=== PATIENT | male | born 1960 | race Caucasian/White ===

== ENCOUNTER 2017-12-17 16:08 | Inpatient (IN) ==
[2017-12-17] MEDS ORDERED: Bumetanide 1 MG/4 ML VIAL IVP ONE (16:34)
--- NOTE | 2017-12-17 16:36 | Emergency Department Note ---
Disposition Clinical Impression: Acute exacerbation of CHF (congestive heart failure), Anemia, Congestive heart failure Disposition: Admitted As Inpatient Condition: Fair Referrals: Damon Amos, [employer] [Primary Care Provider] - Forms: ED Satisfaction Letter SOB HPI - General Chief Complaint: ED Shortness of Breath/Dyspnea Stated Complaint: swelling SOB Time Seen by Provider: 12/17/17 16:11 Source: patient Mode of arrival: ambulatory Limitations: no limitations Nursing Notes Reviewed: Yes Vital Signs Reviewed: Yes - History of Present Illness 57-year-old male who 2 months ago had stents placed and since then has had increasing swelling and edema he's been hospitalized once during this. Time and now presents back to the emergency room with increasing swelling and edema from that time he denies blurred vision double vision loss vision denies a diarrhea melena hematochezia hematemesis patient states that his get 2-3+ edema is unable family rales house second a dyspnea with elevated cough but no congestion he denies diarrhea melena hematochezia hematemesis he states his legs are markedly edematous Pt Subjective Complaint: shortness of breath Onset (ago): month(s) (2) Context: other (History's similar) Severity: severe Consistency/Duration: gradually worsening Improves with: nothing Worsens with: exertion Known history of: congestive heart failure, diabetes Associated symptoms: Reports: wheezing, orthopnea, abdominal pain. Denies: chest pain, pain with inspiration, fever, cough, sputum production, lower extremity pain, polyuria, polydipsia, parasthesias, palpitations, hemoptysis, diaphoresis, nausea/vomiting, syncope, rash, sense of impending doom Treatment prior to arrival: diuretics Cough present: Yes Cough Description: Involuntary, Rattling Cough Frequency: Intermittent Sputum production: No - Related Data Home Medications Medication Instructions Recorded Confirmed metFORMIN [Glucophage] 1,000 mg PO BIDWM 06/05/16 12/17/17 Glimepiride [Amaryl] 2 mg PO 0800 08/29/17 12/17/17 Insulin Glargine,Hum.rec.anlog 20 unit SQ HS 09/08/17 12/17/17 [Basaglar Kwikpen U-100] Lisinopril [Zestril] 5 mg PO DAILY 09/08/17 12/17/17 Atorvastatin [Lipitor] 20 mg PO HS 09/22/17 12/17/17 Previous Rx's Medication Instructions Recorded Aspirin Enteric Coated [Aspirin EC] 81 mg PO DAILY 30 Days #30 09/15/17 tablet. Ticagrelor [Brilinta] 90 mg PO BID 30 Days #60 tablet 09/15/17 Ascorbic Acid [Vitamin C] 500 mg PO 0630 #30 tablet 10/28/17 Bumetanide [Bumex] 1 mg PO BID #60 tablet 10/28/17 Carvedilol 12.5 mg PO BID #60 tab 10/28/17 Digoxin [Lanoxin] 0.125 mg PO DAILY #30 tablet 10/28/17 Ferrous Sulfate 325 mg PO 0630 #30 tablet 10/28/17 Isosorbide MONOnitrate (24 HR) 30 mg PO DAILY #30 tab.er.24h 10/28/17 [Imdur] Potassium Chloride 10 meq PO DAILY #30 tab.er.prt 10/28/17 Allergies Allergy/AdvReac Type Severity Reaction Status Date / Time No Known Allergies Allergy Verified 12/17/17 16:09 All systems ED: reviewed and negative except as stated. Review of Systems: As Per HPI Constitutional: Reports: weakness. Denies: fever, chills Eyes: Denies: eye pain, eye discharge ENT ED: Denies: ear pain, throat pain, congestion Cardiovascular: Reports: dyspnea on exertion, orthopnea, edema. Denies: chest pain, palpitations Respiratory: Denies: cough, dyspnea, wheezes Gastrointestinal: Reports: abdominal pain. 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 Denies: back pain , neck pain Integumentary: Denies: rash, abrasion, other Neurological: Denies: headache, weakness, numbness Psychiatric: Denies: anxiety, depression Endocrine: Denies: fatigue, heat or cold intolerance Hematological/Lymphatic: Denies: easy bleeding Allergic/Immunologic: Denies: facial swelling Past Medical History - Past Medical History Medical history: Reports: CHF, coronary artery disease, diabetes, hypertension, myocardial infarction Surgical history: Reports: angioplasty/stent Psychiatric history: Reports: other - Social History Smoking Status: Never smoker Smokeless Tobacco Status: No Alcohol use: Reports: none Drug use: Reports: marijuana Physical Exam - General Limitations: no limitations General appearance: alert, in no apparent distress, obese - Head Head exam: atraumatic, normocephalic, normal inspection - Eye Eye exam: Present: normal appearance, PERRL, EOMI - ENT ENT exam: normal exam, normal oropharynx, mucous membranes moist, TM's normal bilaterally, normal external ear exam - Neck Neck exam: Present: normal inspection, full ROM, trachea midline - Chest Chest inspection: Present: symmetric chest wall rise, other (Edema to the nipple level) - Respiratory Respiratory exam: Present: normal lung sounds bilaterally, prolonged expiratory phase - Cardiovascular Cardiovascular exam: Present: regular rate, normal rhythm, normal heart sounds, other (Distant heart tones) - Abdominal Exam Abdominal exam: Present: soft, Non-Tender, other (L sounds are diminished pitting edema noted of the abdominal region) - Extremities Exam Extremities exam: Present: normal inspection, full ROM, normal capillary refill , pedal edema. Absent: tenderness - Expanded Lower Extremity Exam Gait: observed and normal - Back Exam Back exam: Present: normal inspection, full ROM. Absent: muscle spasm - Neurological Exam Neurological exam: Present: alert, oriented X3, CN II-XII intact - Psychiatric Psychiatric exam: Present: normal affect, normal mood - Skin Skin exam: Present: warm, dry, intact, normal color Course Course Narrative: Patient seen and examined patient was noted to have 3+ edema over the entire lower portion of his body all the way up to the level of the nipples patient had diminished breath sounds soft supple but fluid shift in the abdomen with the marked edema patient was actually seen by Dr. Cleveland in the emergency room who agreed for admission to his services after evaluation patient transferred to [facility] for further diuresis had already received 2 mg of Bumex here in the ER Vital Signs Temperature 99.2 F 12/17/17 16:11 Pulse Rate 87 12/17/17 16:11 Respiratory Rate 20 12/17/17 16:11 Blood Pressure 156/102 12/17/17 16:11 O2 Sat by Pulse Oximetry 98 12/17/17 16:11 Temperature 98.2 F 12/17/17 18:52 Pulse Rate 62 12/17/17 18:52 Respiratory Rate 20 12/17/17 18:52 Blood Pressure 151/88 12/17/17 18:52 O2 Sat by Pulse Oximetry 98 12/17/17 18:52 Oxygen Delivery Oxygen Delivery Nasal Cannula Shortness of Breath/Dyspnea - Differential Diagnosis Likely: congestive heart failure - Medical Records Medical records reviewed: Yes I reviewed the patient's medical records. - Lab Data Lab results reviewed: Yes I reviewed the patient's lab results. Result diagrams: 12/17/17 16:27 12/17/17 16:27 Lab Results 12/17/17 12/17/17 12/17/17 Range/Units 16:27 16:27 16:27 WBC 8.1 (4.3-11.1) K/mcL RBC 3.57 L (4.19-5.50) M/mcL Hgb 9.9 L (12.9-16.9) g/dL Hct 32.1 L (37.5-50.1) % MCV 89.9 (83.0-100.0) fL MCH 27.7 L (28.0-33.3) pg MCHC 30.8 L (31.6-35.5) g/dL RDW 15.1 H (11.5-14.5) % Plt Count 284 (140-400) K/mcL MPV 10.1 (9.4-12.4) fL Immature Gran % 0.5 (0-4) % Seg Neutrophils % 69.1 % Lymphocytes % 18.2 % Monocytes % 9.0 % Eosinophils % 2.5 % Basophils % 0.7 % Neutrophils # 5.6 (1.6-8.9) K/mcL Lymphocytes # 1.5 (0.6-4.6) K/mcL Monocytes # 0.7 (0.0-1.3) K/mcL Eosinophils # 0.2 (0.0-0.6) K/mcL Basophils # 0.1 (0.0-0.2) K/mcL PT 16.9 H (9.4-12.1) Seconds INR 1.5 APTT 35.1 (26.0-36.0) Seconds Sodium 140 (136-145) mEq/L Potassium 4.7 (3.5-5.1) mEq/L Chloride 95 L (98-107) mEq/L Carbon Dioxide 37 H (23-29) mEq/L BUN 29 H (6-20) mg/dL Creatinine 0.92 (0.70-1.30) mg/dL Est GFR ( Amer) > 60 (> 60) Est GFR (Non-Af Amer) > 60 (> 60) BUN/Creatinine Ratio 32 H (6-26) Glucose 91 (70-105) mg/dL Calculated Osmolality 295 (280-300) Calcium 9.2 (8.6-10.3) mg/dL Magnesium 1.5 L (1.6-2.6) mg/dL Total Bilirubin 0.6 (0.3-1.0) mg/dL AST 23 (13-39) Units/L ALT 14 (7-52) Units/L Alkaline Phosphatase 323 H (34-104) Units/L Troponin I 0.04 H* (< 0.04) ng/mL B-Natriuretic Peptide (Less than 100) pg/mL Serum Total Protein 7.3 (6.4-8.9) g/dL Albumin 3.4 L (3.5-5.7) g/dL Globulin 3.9 H (2.4-3.5) g/dL Albumin/Globulin Ratio 0.9 L (1.1-2.2) TSH 4.950 (0.340-5.600) mcIU/mL 12/17/17 Range/Units 16:27 WBC (4.3-11.1) K/mcL RBC (4.19-5.50) M/mcL Hgb (12.9-16.9) g/dL Hct (37.5-50.1) % MCV (83.0-100.0) fL MCH (28.0-33.3) pg MCHC (31.6-35.5) g/dL RDW (11.5-14.5) % Plt Count (140-400) K/mcL MPV (9.4-12.4) fL Immature Gran % (0-4) % Seg Neutrophils % % Lymphocytes % % Monocytes % % Eosinophils % % Basophils % % Neutrophils # (1.6-8.9) K/mcL Lymphocytes # (0.6-4.6) K/mcL Monocytes # (0.0-1.3) K/mcL Eosinophils # (0.0-0.6) K/mcL Basophils # (0.0-0.2) K/mcL PT (9.4-12.1) Seconds INR APTT (26.0-36.0) Seconds Sodium (136-145) mEq/L Potassium (3.5-5.1) mEq/L Chloride (98-107) mEq/L Carbon Dioxide (23-29) mEq/L BUN (6-20) mg/dL Creatinine (0.70-1.30) mg/dL Est GFR ( Amer) (> 60) Est GFR (Non-Af Amer) (> 60) BUN/Creatinine Ratio (6-26) Glucose (70-105) mg/dL Calculated Osmolality (280-300) Calcium (8.6-10.3) mg/dL Magnesium (1.6-2.6) mg/dL Total Bilirubin (0.3-1.0) mg/dL AST (13-39) Units/L ALT (7-52) Units/L Alkaline Phosphatase (34-104) Units/L Troponin I (< 0.04) ng/mL B-Natriuretic Peptide 1465 H (Less than 100) pg/mL Serum Total Protein (6.4-8.9) g/dL Albumin (3.5-5.7) g/dL Globulin (2.4-3.5) g/dL Albumin/Globulin Ratio (1.1-2.2) TSH (0.340-5.600) mcIU/mL - Radiology Data Radiology results reviewed: Yes I reviewed the patient's radiology results. - EKG Data EKG attestation: Yes I reviewed and interpreted this EKG. EKG results narrative: Sinus rhythm with arrhythmia 93 ME 147 Kurer 70 QT 357 axis -21 Critical Care Time Total Critical Care Time: 40 Attestation: Critical care performed: 40 minutes hypoxia that a clinically significant life- threatening deterioration is patient's condition excluding separately reportable procedures Time is exclusive of separately billable procedures. Time includes: direct patient care, patient reassessment, coordination of patient care, interpretation of data (laboratory data, radiology data, and respiratory data), review of patient's medical records, medical consultation and documentation of patient care. Procedures included in critical care time: Procedures excluded from critical care time:
[2017-12-17 16:44] LABS: Basophils # 0.1 K/mcL (0.0-0.2); Basophils % 0.7 %; Eosinophils # 0.2 K/mcL (0.0-0.6); Eosinophils % 2.5 %; Hematocrit 32.1 % (37.5-50.1); Hemoglobin 9.9 g/dL (12.9-16.9); Immature Granulocytes % 0.5 % (0-4); Lymphocytes # 1.5 K/mcL (0.6-4.6); Lymphocytes % 18.2 %; Mean Corpuscular HGB Conc 30.8 g/dL (31.6-35.5); Mean Corpuscular Hemoglobin 27.7 pg (28.0-33.3); Mean Corpuscular Volume 89.9 fL (83.0-100.0); Mean Platelet Volume 10.1 fL (9.4-12.4); Monocytes # 0.7 K/mcL (0.0-1.3); Neutrophils # 5.6 K/mcL (1.6-8.9); Platelet Count 284 K/mcL (140-400); Red Blood Count 3.57 M/mcL (4.19-5.50); Red Cell Distribution Width 15.1 % (11.5-14.5); Segmented Neutrophils % 69.1 %
[2017-12-17 16:46] LABS: INR 1.5; Prothrombin Time 16.9 Seconds (9.4-12.1)
[2017-12-17 16:49] LABS: Activated Partial Thrombo Time 35.1 Seconds (26.0-36.0)
[2017-12-17 16:56] LABS: Alanine Aminotransferase 14 Units/L (7-52); Albumin 3.4 g/dL (3.5-5.7); Albumin/Globulin Ratio 0.9 (1.1-2.2); Alkaline Phosphatase 323 Units/L (34-104); Aspartate Amino Transferase 23 Units/L (13-39); BUN/Creatinine Ratio 32 (6-26); Bilirubin,Total 0.6 mg/dL (0.3-1.0); Blood Urea Nitrogen 29 mg/dL (6-20); Calcium 9.2 mg/dL (8.6-10.3); Carbon Dioxide 37 mEq/L (23-29); Chloride 95 mEq/L (98-107); Globulin 3.9 g/dL (2.4-3.5); Glucose 91 mg/dL (70-105); Magnesium 1.5 mg/dL (1.6-2.6); Osmolality,Calculated 295 (280-300); Potassium 4.7 mEq/L (3.5-5.1); Sodium 140 mEq/L (136-145); Total Protein 7.3 g/dL (6.4-8.9); eGFR For Non-African Americans > 60 (> 60)
[2017-12-17 17:11] LABS: Troponin I 0.04 ng/mL (< 0.04)
[2017-12-17] MEDS ORDERED: Naloxone 0.4 MG/ML INJ IVP PRN (19:57)
[2017-12-17] MEDS ORDERED: Insulin DETEMIR 100 UNIT/ML per UNIT SQ ONE (21:00)
[2017-12-17] MEDS: Bumetanide 1 MG TABLET PO SCH (21:38)
[2017-12-17] MEDS: *HR* Ticagrelor 90 MG TABLET PO SCH (21:38)
[2017-12-18 06:17] LABS: Basophils # 0.1 K/mcL (0.0-0.2); Basophils % 0.7 %; Eosinophils # 0.1 K/mcL (0.0-0.6); Eosinophils % 1.5 %; Hematocrit 31.1 % (37.5-50.1); Hemoglobin 9.5 g/dL (12.9-16.9); Immature Granulocytes % 0.3 % (0-4); Lymphocytes # 1.5 K/mcL (0.6-4.6); Mean Corpuscular HGB Conc 30.5 g/dL (31.6-35.5); Mean Corpuscular Hemoglobin 27.3 pg (28.0-33.3); Mean Corpuscular Volume 89.4 fL (83.0-100.0); Mean Platelet Volume 10.3 fL (9.4-12.4); Monocytes % 10.9 %; Neutrophils # 6.1 K/mcL (1.6-8.9); Platelet Count 278 K/mcL (140-400); Red Blood Count 3.48 M/mcL (4.19-5.50); Red Cell Distribution Width 15.2 % (11.5-14.5); Segmented Neutrophils % 69.6 %
[2017-12-18 06:28] LABS: INR 1.6; Prothrombin Time 17.8 Seconds (9.4-12.1)
[2017-12-18 06:31] LABS: Activated Partial Thrombo Time 36.6 Seconds (26.0-36.0)
[2017-12-18] MEDS: Ascorbic Acid 500 MG TABLET PO SCH (06:44)
[2017-12-18 06:58] LABS: BUN/Creatinine Ratio 37 (6-26); Blood Urea Nitrogen 30 mg/dL (6-20); Calcium 9.2 mg/dL (8.6-10.3); Carbon Dioxide 36 mEq/L (23-29); Chloride 97 mEq/L (98-107); Glucose 84 mg/dL (70-105); Osmolality,Calculated 295 (280-300); Potassium 3.9 mEq/L (3.5-5.1); Sodium 140 mEq/L (136-145); eGFR For Non-African Americans > 60 (> 60)
[2017-12-18] MEDS ORDERED: Bumetanide 1 MG/4 ML VIAL IVP SCH ×2 (08:00→15:47)
[2017-12-18] MEDS ORDERED: Isosorbide MONOnitrate (24 HR) 30 MG TAB.ER.24H PO SCH (09:00)
[2017-12-18] MEDS: *HR* Ticagrelor 90 MG TABLET PO SCH ×2 (09:04→20:25)
[2017-12-18] MEDS: *HR* Glimepiride 2 MG TABLET PO SCH (09:05)
[2017-12-18] MEDS: *HR* Metformin 500 MG TABLET PO SCH ×2 (09:05→16:41)
[2017-12-18] MEDS: Aspirin Enteric Coated 81 MG Tablet PO SCH (09:05)
[2017-12-18] MEDS: *HR* Digoxin 0.125 MG TABLET PO SCH (09:05)
[2017-12-18] MEDS: Bumetanide 1 MG TABLET PO SCH (09:07)
--- NOTE | 2017-12-18 15:33 | Internal Med History&Physical ---
Date of Encounter: 12/18/17 Time of Encounter: 15:00 Assessment and Plan (1) Acute exacerbation of CHF (congestive heart failure) Current visit: Yes Status: Acute Weight and BN peptide have improved since discharge October 2017. He is still significantly symptomatic however so will increase diuretic, Coreg, ACEI, and isosorbide dose. Qualifiers: Heart failure type: systolic Qualified Code(s): I50.23 - Acute on chronic systolic (congestive) heart failure (2) HTN (hypertension) Current visit: No Status: Chronic Increase lisinopril and Coreg. Qualifiers: Hypertension type: essential hypertension Qualified Code(s): I10 - Essential (primary) hypertension (3) Diabetes Current visit: No Status: Chronic Hemoglobin A1c was 10.9% on 10/26/2017. Continue Levemir and Glucophage. Qualifiers: Diabetes mellitus type: type 2 Diabetes mellitus residential insulin use: unspecified [employer] helper insulin use status Diabetes mellitus complication status : with unspecified complications Qualified Code(s): E11.8 - Type 2 diabetes mellitus with unspecified complications (4) CAD (coronary artery disease) Current visit: No Status: Acute Increase Coreg and isosorbide. Continue aspirin.. Qualifiers: Coronary Disease-Associated Artery/Lesion type: [place] artery [place] vs. transplanted heart: [place] heart Associated angina: without angina Qualified Code(s): I25.10 - Atherosclerotic heart disease of [place] coronary artery without angina pectoris (5) Anemia Current visit: Yes Status: Chronic Anemia testing October 2017 showed iron 28, transferrin saturation 10%, transferrin 196, ferritin 121, B12 351, and folate 8.8. Continue ferrous sulfate with vitamin C. Qualifiers: Anemia type: iron deficiency Qualified Code(s): D50.8 - Other iron deficiency anemias (6) Pulmonary hypertension Current visit: No Status: Acute As above. Internal Medicine - H&P: HPI Chief complaint: Dyspnea, edema Admitted From: Emergency Dept Plans for Post Hospital Care: Home History of present illness: Mr. Trujillo is a 57 year old male who came to emergency room stating he had increasing dyspnea over the past month. He reports he had fallen approximately 6 times since discharge from [facility] 10/28/2017 despite using a cane to assist in ambulation. He was evaluated in emergency room and found to have anasarca likely due to diastolic heart failure. He was admitted to [facility] floor for ongoing care needs. His cardiovascular history is significant for hypertension. He has known [facility] and states he had MD in July 2017. Heart catheter done in August 2017 resulted in PCI with stents in the mid LAD, diagonal, and right PDA. LVEF at cath was estimated 20-25%. Echocardiogram 09/09/2017 showed LVEF 35% with diffuse LV hypokinesis. There was indeterminate diastolic function. There was mild aortic regurgitation, mild mitral regurgitation, moderate tricuspid regurgitation, and severe pulmonary hypertension with estimated RVSP of 69 mmHg. A small pericardial effusion was present and a large pleural effusion seen at that time. He denies DVT or pulmonary embolus. He denies medication noncompliance other than missing a rare dose of his pills. Past Med Surg Social Fam HX - Past Medical History Medical history: CHF, coronary artery disease, diabetes, hypertension, myocardial infarction Psychiatric history: other - Past Surgical History Surgical History: angioplasty/stent - Social History Smoking Status: Never smoker Smokeless Tobacco Status: No Alcohol use: none Drug use: marijuana - Family History Father Family Member Ethnicity: Non- Living Status: Hx Family Cardiac Disorders: Yes (MD @ 31) Mother Family Member Ethnicity: Non- Living Status: Hx Family Cancer: Yes (Lung) Brother Family Member Ethnicity: Non- Living Status: Still Living Sister Family Member Ethnicity: Non- Living Status: Still Living Internal Medicine - H&P: Meds metFORMIN [Glucophage] 1,000 mg PO BIDWM 06/05/16 [History] Glimepiride [Amaryl] 2 mg PO 0800 08/29/17 [History] Insulin Glargine,Hum.rec.anlog [Basaglar Kwikpen U-100] 20 unit SQ HS 09/08/17 [ History] Lisinopril [Zestril] 5 mg PO DAILY 09/08/17 [History] Aspirin Enteric Coated [Aspirin EC] 81 mg PO DAILY 30 Days #30 tablet. [Rx] Ticagrelor [Brilinta] 90 mg PO BID 30 Days #60 tablet 09/15/17 [Rx] Atorvastatin [Lipitor] 20 mg PO HS 09/22/17 [History] Ascorbic Acid [Vitamin C] 500 mg PO 0630 #30 tablet 10/28/17 [Rx] Bumetanide [Bumex] 1 mg PO BID #60 tablet 10/28/17 [Rx] Carvedilol 12.5 mg PO BID #60 tab 10/28/17 [Rx] Digoxin [Lanoxin] 0.125 mg PO DAILY #30 tablet 10/28/17 [Rx] Ferrous Sulfate 325 mg PO 0630 #30 tablet 10/28/17 [Rx] Isosorbide MONOnitrate (24 HR) [Imdur] 30 mg PO DAILY #30 tab.er.24h 10/28/17 [ Rx] Potassium Chloride 10 meq PO DAILY #30 tab.er.prt 10/28/17 [Rx] 3 Allergy/AdvReac Type Severity Reaction Status Date / Time No Known Allergies Allergy Verified 12/17/17 16:09 All Systems PM: A 10-system review of systems was performed and is negative for pertinent findings except as documented above in the HPI. Review of systems: Review of systems from his October 2017 [facility] hospitalization were reviewed and revised as below. Gen.: His weight has increased from 70.3 kg on 09/14/2017 to 98.83 kg on admission October 2017 but decreased to 94.2 kg now Cardiovascular: As per history of present illness Respiratory: He reports being a lifelong nonsmoker and denies chronic lung disease. GI: Denies disorders of his liver gallbladder or exocrine pancreas : He denies hematuria dysuria or kidney stones Neurologic: He reports diabetic peripheral neuropathy. He denies large distribution strokes or seizures. Endocrine: Diagnosed with DM 2 approximately 1991. He has hyperlipidemia but denies thyroid disease Hematology/oncology: He denies blood disorders cancers or anemia Psychiatric: He has depression but denies anxiety or other mental health issues [place] skeletal: He has DJD but denies gout or other bone joint or muscle disorders. - Constitutional Vitals: Temp Pulse Resp BP Pulse Ox 98.8 F 98 17 142/83 93 12/18/17 11:59 12/18/17 11:59 12/18/17 11:59 12/18/17 11:59 12/18/17 11:59 Exam: Gen.: He is a well-developed well-nourished male sitting in a chair at bedside who appears slightly dyspneic. HEENT: Head is atraumatic and normocephalic. Eyes: EOMI. There is no scleral icterus. Mouth: Mucosa is moist. Neck:supple and nontender. Heart: Regular without murmurs gallops or ectopics Lungs: No wheezes or crackles are heard. He has diminished breaths as diffusely. Abdomen: Exam is limited because he is in the seated position. He has firmness with pitting edema of his abdominal torres. No guarding is noted. Extremities: He has 2-3+ edema of the dorsum of the feet and legs. Dorsalis pedis and posttibial pulses are not palpable. He has significant edema of the dorsum of the hands. Neurologic: Mental status: He is talkative and a good historian. Cranial nerves : Smile is symmetric. Forehead wrinkles bilaterally. Tongue protrudes midline. EOMI. Motor: There is no pronator drift. Cerebellar: Finger to nose is intact bilaterally. Skin: Warm and dry Internal Med - H&P Results - Labs CBC & Chem 7: 12/18/17 06:05 12/18/17 06:05 Labs: Short CBC 12/18/17 Range/Units 06:05 WBC 8.8 (4.3-11.1) K/mcL Hgb 9.5 L (12.9-16.9) g/dL Hct 31.1 L (37.5-50.1) % Plt Count 278 (140-400) K/mcL Neutrophils # 6.1 (1.6-8.9) K/mcL BMP 12/18/17 06:05 Sodium 140 Potassium 3.9 Chloride 97 L Carbon Dioxide 36 H BUN 30 H Creatinine 0.81 Glucose 84 Calcium 9.2 Cardiac Enzymes 12/17/17 12/18/17 Range/Units 23:01 06:05 Troponin I 0.03 0.04 H* (< 0.04) ng/mL
[2017-12-18] MEDS: Isosorbide MONOnitrate (24 HR) 60 MG TAB.ER.24H PO SCH (16:40)
[2017-12-18] MEDS: Bumetanide 1 MG/4 ML VIAL IVP SCH (16:41)
[2017-12-18] MEDS: Magnesium Oxide 400 MG TABLET PO SCH (20:24)
[2017-12-18] MEDS: Insulin DETEMIR 100 UNIT/ML X5UNITS SQ SCH (20:25)
[2017-12-19 06:24] LABS: Basophils % 0.4 %; Eosinophils # 0.2 K/mcL (0.0-0.6); Eosinophils % 3.2 %; Hematocrit 26.3 % (37.5-50.1); Hemoglobin 8.1 g/dL (12.9-16.9); Immature Granulocytes % 0.3 % (0-4); Lymphocytes # 0.9 K/mcL (0.6-4.6); Lymphocytes % 13.6 %; Mean Corpuscular HGB Conc 30.8 g/dL (31.6-35.5); Mean Corpuscular Hemoglobin 27.6 pg (28.0-33.3); Mean Corpuscular Volume 89.8 fL (83.0-100.0); Mean Platelet Volume 10.1 fL (9.4-12.4); Monocytes # 0.6 K/mcL (0.0-1.3); Monocytes % 9.1 %; Neutrophils # 5.1 K/mcL (1.6-8.9); Platelet Count 232 K/mcL (140-400); Red Blood Count 2.93 M/mcL (4.19-5.50); Red Cell Distribution Width 15.3 % (11.5-14.5); Segmented Neutrophils % 73.4 %
[2017-12-19] MEDS: Ascorbic Acid 500 MG TABLET PO SCH (06:32)
[2017-12-19 06:55] LABS: BUN/Creatinine Ratio 34 (6-26); Blood Urea Nitrogen 28 mg/dL (6-20); Calcium 8.6 mg/dL (8.6-10.3); Carbon Dioxide 43 mEq/L (23-29); Chloride 95 mEq/L (98-107); Glucose 57 mg/dL (70-105); Osmolality,Calculated 297 (280-300); Potassium 3.6 mEq/L (3.5-5.1); Sodium 142 mEq/L (136-145); eGFR For Non-African Americans > 60 (> 60)
[2017-12-19] MEDS: *HR* Digoxin 0.125 MG TABLET PO SCH (08:47)
[2017-12-19] MEDS: Aspirin Enteric Coated 81 MG Tablet PO SCH (08:48)
[2017-12-19] MEDS: *HR* Ticagrelor 90 MG TABLET PO SCH ×2 (08:48→21:02)
[2017-12-19] MEDS: Isosorbide MONOnitrate (24 HR) 60 MG TAB.ER.24H PO SCH (08:48)
[2017-12-19] MEDS: Magnesium Oxide 400 MG TABLET PO SCH ×2 (08:48→21:01)
[2017-12-19] MEDS: *HR* Glimepiride 2 MG TABLET PO SCH (08:48)
[2017-12-19] MEDS: *HR* Metformin 500 MG TABLET PO SCH ×2 (08:48→16:35)
[2017-12-19] MEDS: Lisinopril 20 MG TABLET PO SCH (08:49)
[2017-12-19] MEDS: Bumetanide 1 MG/4 ML VIAL IVP SCH ×2 (08:49→16:35)
--- NOTE | 2017-12-19 17:44 | Internal Med Progress Note ---
Date of Encounter: 12/19/17 Time of Encounter: 17:35 - Assessment and plan (1) Acute exacerbation of CHF (congestive heart failure) Current Visit: Yes Status: Acute Assessment and plan: December 19. Continue IV Bumex with Coreg, Lanoxin, ACEI, and Imdur Qualifiers: Heart failure type: systolic Qualified Code(s): I50.23 - Acute on chronic systolic (congestive) heart failure (2) HTN (hypertension) Current Visit: No Status: Chronic Assessment and plan: December 19. Continue lisinopril and Coreg Qualifiers: Hypertension type: essential hypertension Qualified Code(s): I10 - Essential (primary) hypertension (3) Diabetes Current Visit: No Status: Chronic Assessment and plan: December 19. Hemoglobin A1c was 10.9% on 10/26/2017. Continue Levemir and Glucophage. Qualifiers: Diabetes mellitus type: type 2 Diabetes mellitus [facility] insulin use: unspecified [facility] insulin use status Diabetes mellitus complication status : with unspecified complications Qualified Code(s): E11.8 - Type 2 diabetes mellitus with unspecified complications (4) CAD (coronary artery disease) Current Visit: No Status: Acute Assessment and plan: December 19. Continue aspirin, Brilinta, Coreg, and Imdur Qualifiers: Coronary Disease-Associated Artery/Lesion type: [place] artery [place] vs. transplanted heart: [place] heart Associated angina: without angina Qualified Code(s): I25.10 - Atherosclerotic heart disease of [place] coronary artery without angina pectoris (5) Anemia Current Visit: Yes Status: Chronic Assessment and plan: December 19. Hemoglobin decrease today to 8.1. Continue ferrous sulfate with vitamin C and recheck in a.m. Qualifiers: Anemia type: iron deficiency Qualified Code(s): D50.8 - Other iron deficiency anemias (6) Pulmonary hypertension Current Visit: No Status: Acute Assessment and plan: December 19. Continue present regimen. (7) Hypomagnesemia Current Visit: Yes Status: Acute Assessment and plan: December 19. Continue magnesium oxide and recheck labs in a.m. - Subjective Interval history: December 19. He has no new complaints. He feels slightly improved but still has some dyspnea and feels edematous. - Constitutional Vitals: Temp Pulse Resp BP Pulse Ox 99 F 82 14 105/65 94 12/19/17 07:00 12/19/17 07:00 12/19/17 07:00 12/19/17 07:00 12/19/17 14:12 Exam: He is resting comfortably in bed and appears in no acute distress. Edema of his legs and arms shows slight decrease from yesterday. Weight has decreased from 94.2 kg to 93.4 kg. His medications and labs were reviewed. Internal Medicine: Result - Labs CBC & Chem 7: 12/19/17 05:34 12/19/17 05:34 Labs: Short CBC 12/19/17 Range/Units 05:34 WBC 6.9 (4.3-11.1) K/mcL Hgb 8.1 L (12.9-16.9) g/dL Hct 26.3 L (37.5-50.1) % Plt Count 232 (140-400) K/mcL Neutrophils # 5.1 (1.6-8.9) K/mcL BMP 12/19/17 05:34 Sodium 142 Potassium 3.6 Chloride 95 L Carbon Dioxide 43 H* BUN 28 H Creatinine 0.82 Glucose 57 L Calcium 8.6 - ABG Interpretation ABG results: PT/INR, D-dimer PT 17.8 Seconds (9.4-12.1) H 12/18/17 06:05 Consult Discharge Plan - Plan Referrals: Damon Amos, [employer] [Primary Care Provider] - 1 week
[2017-12-19] MEDS: Insulin DETEMIR 100 UNIT/ML X5UNITS SQ SCH (21:02)
[2017-12-19] MEDS: *HR* HYDROcodone/Acet 5/325 mg TABLET PO PRN (21:50)
[2017-12-20] MEDS: *HR* HYDROcodone/Acet 5/325 mg TABLET PO PRN ×3 (02:48→21:04)
[2017-12-20 05:48] LABS: Basophils % 0.5 %; Eosinophils # 0.3 K/mcL (0.0-0.6); Eosinophils % 4.6 %; Hematocrit 26.3 % (37.5-50.1); Immature Granulocytes % 0.3 % (0-4); Lymphocytes % 15.2 %; Mean Corpuscular HGB Conc 30.4 g/dL (31.6-35.5); Mean Corpuscular Hemoglobin 27.9 pg (28.0-33.3); Mean Corpuscular Volume 91.6 fL (83.0-100.0); Mean Platelet Volume 10.1 fL (9.4-12.4); Monocytes # 0.6 K/mcL (0.0-1.3); Monocytes % 9.6 %; Neutrophils # 4.6 K/mcL (1.6-8.9); Platelet Count 251 K/mcL (140-400); Red Blood Count 2.87 M/mcL (4.19-5.50); Red Cell Distribution Width 15.4 % (11.5-14.5); Segmented Neutrophils % 69.8 %
[2017-12-20] MEDS: Ascorbic Acid 500 MG TABLET PO SCH (06:42)
[2017-12-20 08:05] LABS: BUN/Creatinine Ratio 37 (6-26); Blood Urea Nitrogen 29 mg/dL (6-20); Calcium 8.5 mg/dL (8.6-10.3); Carbon Dioxide 42 mEq/L (23-29); Chloride 98 mEq/L (98-107); Glucose 43 mg/dL (70-105); Magnesium 1.2 mg/dL (1.6-2.6); Osmolality,Calculated 301 (280-300); Potassium 3.9 mEq/L (3.5-5.1); Sodium 144 mEq/L (136-145); eGFR For Non-African Americans > 60 (> 60)
[2017-12-20] MEDS: Magnesium Oxide 400 MG TABLET PO SCH ×3 (09:59→21:04)
[2017-12-20] MEDS: *HR* Digoxin 0.125 MG TABLET PO SCH (09:59)
[2017-12-20] MEDS: Bumetanide 1 MG/4 ML VIAL IVP SCH ×2 (09:59→16:27)
[2017-12-20] MEDS: Isosorbide MONOnitrate (24 HR) 60 MG TAB.ER.24H PO SCH (10:00)
[2017-12-20] MEDS: Aspirin Enteric Coated 81 MG Tablet PO SCH (10:00)
[2017-12-20] MEDS: *HR* Metformin 500 MG TABLET PO SCH ×2 (10:00→16:26)
[2017-12-20] MEDS: *HR* Glimepiride 2 MG TABLET PO SCH (10:00)
[2017-12-20] MEDS: *HR* Ticagrelor 90 MG TABLET PO SCH ×2 (10:02→21:03)
--- NOTE | 2017-12-20 11:07 | Internal Med Progress Note ---
Date of Encounter: 12/20/17 Time of Encounter: 10:25 - Assessment and plan (1) Acute exacerbation of CHF (congestive heart failure) Current Visit: Yes Status: Acute Assessment and plan: December 19. Continue IV Bumex with Coreg, Lanoxin, ACEI, and Imdur Qualifiers: Heart failure type: systolic Qualified Code(s): I50.23 - Acute on chronic systolic (congestive) heart failure (2) HTN (hypertension) Current Visit: No Status: Chronic Assessment and plan: December 19. Continue lisinopril and Coreg Qualifiers: Hypertension type: essential hypertension Qualified Code(s): I10 - Essential (primary) hypertension (3) Diabetes Current Visit: No Status: Chronic Assessment and plan: December 19. Hemoglobin A1c was 10.9% on 10/26/2017. Continue Levemir and Glucophage. Qualifiers: Diabetes mellitus type: type 2 Diabetes mellitus nursing home insulin use: unspecified nursing home insulin use status Diabetes mellitus complication status : with unspecified complications Qualified Code(s): E11.8 - Type 2 diabetes mellitus with unspecified complications (4) CAD (coronary artery disease) Current Visit: No Status: Acute Assessment and plan: December 19. Continue aspirin, Brilinta, Coreg, and Imdur Qualifiers: Coronary Disease-Associated Artery/Lesion type: [place] artery [place] vs. transplanted heart: [place] heart Associated angina: without angina Qualified Code(s): I25.10 - Atherosclerotic heart disease of [place] coronary artery without angina pectoris (5) Anemia Current Visit: Yes Status: Chronic Assessment and plan: December 19. Hemoglobin decrease today to 8.1. Continue ferrous sulfate with vitamin C and recheck in a.m. December 20. Hemoglobin minimally changed at 8.0 Continue ferrous sulfate with vitamin C Qualifiers: Anemia type: iron deficiency Qualified Code(s): D50.8 - Other iron deficiency anemias (6) Pulmonary hypertension Current Visit: No Status: Acute Assessment and plan: December 19. Continue present regimen. (7) Hypomagnesemia Current Visit: Yes Status: Acute Assessment and plan: December 19. Continue magnesium oxide and recheck labs in a.m. December 20. Magnesium level further decreased 1.2. Increase magnesium oxide to 400 mg every 8 hours and recheck labs in a.m. (8) Weakness Current Visit: Yes Status: Acute Assessment and plan: December 20. I told him I felt he was unable to care for himself adequately at home and was uncertain if family members could provide the needed care. PT and OT evaluation will be ordered. He did not seem very open to considering SNF after hospital discharge. - Subjective Interval history: December 19. He has no new complaints. He feels slightly improved but still has some dyspnea and feels edematous. December 20. He has no new complaints. - Constitutional Vitals: Temp Pulse Resp BP Pulse Ox 98.5 F 83 18 104/68 93 12/20/17 07:14 12/20/17 07:14 12/20/17 07:14 12/20/17 07:14 12/20/17 07:14 Exam: He is resting comfortably in bed and appears in no acute distress. Edema is slightly decreased in his legs. Reviewed his medications and lab results. Internal Medicine: Result - Labs CBC & Chem 7: 12/20/17 05:19 12/20/17 05:19 Labs: Short CBC 12/20/17 Range/Units 05:19 WBC 6.6 (4.3-11.1) K/mcL Hgb 8.0 L (12.9-16.9) g/dL Hct 26.3 L (37.5-50.1) % Plt Count 251 (140-400) K/mcL Neutrophils # 4.6 (1.6-8.9) K/mcL BMP 12/20/17 05:19 Sodium 144 Potassium 3.9 Chloride 98 Carbon Dioxide 42 H* BUN 29 H Creatinine 0.78 Glucose 43 L Calcium 8.5 L - ABG Interpretation ABG results: PT/INR, D-dimer PT 17.8 Seconds (9.4-12.1) H 12/18/17 06:05 Consult Discharge Plan - Plan Referrals: Damon Amos, AUDIO/VISUAL MANAGER [Primary Care Provider] - 1 week
[2017-12-20] MEDS: Lisinopril 20 MG TABLET PO SCH (14:36)
[2017-12-20] MEDS ORDERED: Insulin DETEMIR 100 UNIT/ML X5UNITS SQ SCH (21:00)
--- NOTE | 2017-12-20 23:49 | Electrocardiograph Report ---
[address] [place], [place] [address] Test Date: 2017-12-17 Pat Name: Primo Trujillo Department: [id number] Room: [facility] Gender: M Panel Monitor: Jillian : 1960 Requested By: Nichelle Davenport Order Number: [id number] Reading MD: Kelly Nunez Measurements Intervals [place] Rate: 93 P: 35 WA: 147 QRS: -21 QRSD: 78 T: 63 QT: 357 QTc: 408 Interpretive Statements SINUS RHYTHM WITH MARKED SINUS ARRHYTHMIA LOW QRS VOLTAGE ANTERIOR MYOCARDIAL INFARCTION, PROBABLY OLD Electronically Signed On 12-20-2017 23:47:28 EDT by Kelly Nunez
[2017-12-21 05:08] LABS: Basophils % 0.7 %; Eosinophils # 0.3 K/mcL (0.0-0.6); Eosinophils % 4.5 %; Hematocrit 28.5 % (37.5-50.1); Hemoglobin 8.5 g/dL (12.9-16.9); Immature Granulocytes % 0.2 % (0-4); Lymphocytes % 17.8 %; Mean Corpuscular HGB Conc 29.8 g/dL (31.6-35.5); Mean Corpuscular Hemoglobin 27.5 pg (28.0-33.3); Mean Corpuscular Volume 92.2 fL (83.0-100.0); Mean Platelet Volume 9.9 fL (9.4-12.4); Monocytes # 0.6 K/mcL (0.0-1.3); Monocytes % 11.1 %; Neutrophils # 3.6 K/mcL (1.6-8.9); Platelet Count 270 K/mcL (140-400); Red Blood Count 3.09 M/mcL (4.19-5.50); Red Cell Distribution Width 15.5 % (11.5-14.5); Segmented Neutrophils % 65.7 %
[2017-12-21 05:36] LABS: BUN/Creatinine Ratio 34 (6-26); Blood Urea Nitrogen 36 mg/dL (6-20); Calcium 8.6 mg/dL (8.6-10.3); Carbon Dioxide 42 mEq/L (23-29); Chloride 97 mEq/L (98-107); Glucose 76 mg/dL (70-105); Osmolality,Calculated 303 (280-300); Potassium 4.5 mEq/L (3.5-5.1); Sodium 143 mEq/L (136-145); eGFR For Non-African Americans > 60 (> 60)
[2017-12-21] MEDS: Ascorbic Acid 500 MG TABLET PO SCH (05:51)
[2017-12-21] MEDS: Aspirin Enteric Coated 81 MG Tablet PO SCH (08:47)
[2017-12-21] MEDS: *HR* Digoxin 0.125 MG TABLET PO SCH (08:47)
[2017-12-21] MEDS: *HR* Ticagrelor 90 MG TABLET PO SCH (08:48)
[2017-12-21] MEDS: Isosorbide MONOnitrate (24 HR) 60 MG TAB.ER.24H PO SCH (08:48)
[2017-12-21] MEDS: Bumetanide 1 MG/4 ML VIAL IVP SCH (08:48)
[2017-12-21] MEDS: Magnesium Oxide 400 MG TABLET PO SCH (08:48)
[2017-12-21] MEDS: *HR* Metformin 500 MG TABLET PO SCH (08:49)
[2017-12-21] MEDS: *HR* Glimepiride 2 MG TABLET PO SCH (08:49)
[2017-12-21] MEDS: Lisinopril 20 MG TABLET PO SCH (08:49)
--- NOTE | 2017-12-21 10:11 | Discharge Summary ---
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 transplanted heart: [place] heart Associated angina: without angina Qualified Code(s): I25.10 - Atherosclerotic heart disease of [place] coronary artery without angina pectoris (5) Anemia Priority: Secondary Status: Chronic Qualifiers: Anemia type: iron deficiency Qualified Code(s): D50.8 - Other iron deficiency anemias (6) Pulmonary hypertension Priority: Secondary Status: Acute (7) Hypomagnesemia Priority: Secondary Status: Acute (8) Weakness Priority: Secondary Status: Acute Hospital course: Mr. Trujillo is a 57 year old male who came to emergency room stating he had increasing dyspnea over the past month. He reports he had fallen approximately 6 times since discharge from [facility] 10/28/2017 despite using a cane to assist in ambulation. He was evaluated in emergency room and found to have anasarca likely due to diastolic heart failure. He was admitted to [facility] for ongoing care needs. Initial orders were written by the ER physician. I saw him on December 18 and performed a history and physical. I increased Coreg, lisinopril, isosorbide, and started him on IV Bumex. He had good diuresis. BN peptide decreased to 1213 by day of discharge. There was lessening of the edema of his arms and legs. It told him I felt he might benefit from ongoing care in SNF but he declined and wished to be discharged home. He stated he felt much improved from admission and back to his baseline. He will remain on increased dose of lisinopril, isosorbide, and Coreg. His PCP can monitor heart failure. PT and OT evaluations were done. Therapist did not feel he needed ongoing therapy in skilled setting. He will follow with his PCP ELHAM Amos within 1 week. He will continue oxygen use as at home. - Time Spent with Patient Total time spent providing and/or coordinating discharge services: - Discharge Medications Prescriptions: Carvedilol [Coreg] 25 mg PO BID #60 tablet Isosorbide MONOnitrate (24 HR) [Imdur] 60 mg PO DAILY #30 tab.er.24h Lisinopril [Zestril] 10 mg PO DAILY #30 tablet Magnesium Oxide [Mag-Ox] 400 mg PO BID #14 tablet Home Medications: metFORMIN [Glucophage] 1,000 mg PO BIDWM 06/05/16 [History] Glimepiride [Amaryl] 2 mg PO 0800 08/29/17 [History] Insulin Glargine,Hum.rec.anlog [Basaglar Kwikpen U-100] 20 unit SQ HS 09/08/17 [ History] Aspirin Enteric Coated [Aspirin EC] 81 mg PO DAILY 30 Days #30 tablet. [Rx] Ticagrelor [Brilinta] 90 mg PO BID 30 Days #60 tablet 09/15/17 [Rx] Atorvastatin [Lipitor] 20 mg PO HS 09/22/17 [History] Ascorbic Acid [Vitamin C] 500 mg PO 0630 #30 tablet 10/28/17 [Rx] Bumetanide [Bumex] 1 mg PO BID #60 tablet 10/28/17 [Rx] Digoxin [Lanoxin] 0.125 mg PO DAILY #30 tablet 10/28/17 [Rx] Ferrous Sulfate 325 mg PO 0630 #30 tablet 10/28/17 [Rx] Potassium Chloride 10 meq PO DAILY #30 tab.er.prt 10/28/17 [Rx] Carvedilol [Coreg] 25 mg PO BID #60 tablet 12/21/17 [Rx] Isosorbide MONOnitrate (24 HR) [Imdur] 60 mg PO DAILY #30 tab.er.24h 12/21/17 [ Rx] Lisinopril [Zestril] 10 mg PO DAILY #30 tablet 12/21/17 [Rx] Magnesium Oxide [Mag-Ox] 400 mg PO BID #14 tablet 12/21/17 [Rx] Allergies/Adverse Reactions: 3 Allergy/AdvReac Type Severity Reaction Status Date / Time No Known Allergies Allergy Verified 12/17/17 16:09 Date of admission: 12/19/17 18:24 Primary care physician: Damon Amos CNP Consults: 12/20/17 10:27 Consult to Occupational Therapy [CONS] Routine Comment: Evaluate, develop and implement POC Reason for Consult: weakness Does patient have active BEDREST order?: No Is patient medically & hemodynamically stable?: Yes Patient assessed for mobility or mobilized this visit?: Yes 12/20/17 10:28 Consult to Physical Therapy [CONS] Routine Comment: Evaluate, develop and implement POC Reason for Consult: weakness Does patient have active BEDREST order?: No Is patient medically & hemodynamically stable?: Yes Patient assessed for mobility or mobilized this visit?: Yes - Constitutional Vitals: Temp Pulse Resp BP Pulse Ox 98.5 F 76 18 108/72 97 12/21/17 07:52 12/21/17 07:52 12/21/17 07:52 12/21/17 07:52 12/21/17 07:52 - Patient Status Disposition: Home, Self-Care Condition: Fair - Discharge Instructions Follow Up With: Damon Amos CNP [Primary Care Provider] - 1 week - Diet and Activity Activity: resume usual activities as tolerated Diet: diabetic diet
[2017-12-21 11:29] VITALS: BP 95/64
== END 2017-12-21 12:23 | disposition home or self-care (01) | DRG 194 ==
LOC: EMEROOPIK 16:08 → INPPIK 16:08
PROVIDERS: ADMIT Internal Medicine; ATTEND Internal Medicine